=== PATIENT | female | born 1980 | race Caucasian/White ===

== ENCOUNTER 2019-11-01 14:45 | Inpatient (IN) | payer MEDICAID ==
[~2019-11-01] VITALS: Ht 144.8 cm; Wt 66.2 kg
[2019-11-01] MEDS: OXYTOCIN 20 UNITS in LACTATED RINGERS 1,000 ML IV SCH (05:00)
[2019-11-01] MEDS ORDERED: DEXT 5%/LR + PITOCIN 20UNITS/L 1,000 ML IV SCH (15:36)
[2019-11-01] MEDS ORDERED: METHYLERGONOVINE MALEATE 0.2 MG/ML IM PRN (15:45)
[2019-11-01] MEDS ORDERED: BUTORPHANOL TARTRATE 2 MG/ML VIAL IV PRN (15:45)
[2019-11-01] MEDS ORDERED: LABETALOL HCL 5MG/ML VIAL 20ML IV PRN ×3 (15:45)
[2019-11-01] MEDS ORDERED: HYDRALAZINE 20MG/ML VIAL IV PRN (15:45)
[2019-11-01] MEDS ORDERED: MISOPROSTOL 200MCG TABLET VG SCH (15:45)
[2019-11-01] MEDS ORDERED: LIDOCAINE HCL 1% 20ML VIAL (Pyxis) INJ INFIL SCH (15:45)
[2019-11-01] MEDS ORDERED: CARBOPROST TROMETHAMINE 250 MCG/ML AMPUL IM PRN (15:45)
[2019-11-01] MEDS ORDERED: NALOXONE HCL 0.4 MG/ML 1ML VIAL IM PRN (15:45)
[2019-11-01] MEDS ORDERED: MAGNESIUM 2 G PREMIX 50 ML IV SCH (16:00)
[2019-11-01] MEDS ORDERED: LACTATED RINGERS 1,000 ML IV SCH (16:00)
[2019-11-01] MEDS: MAGNESIUM 20 G PREMIX (L & D) 500 ML IV SCH (16:39)
[2019-11-01 16:58] LABS: CLARITY URINE CLEAR (CLEAR); COLOR URINE YELLOW (YELLOW); KETONES URINE 1+ (NEGATIVE); LEUKOCYTE ESTERASE URINE NEGATIVE (NEGATIVE); NITRITE URINE NEGATIVE (NEGATIVE); OCCULT BLOOD URINE 1+ (NEGATIVE); PROTEIN URINE 2+ (NEGATIVE); SPECIFIC GRAVITY URINE 1.015 (1.005-1.030); UROBILINOGEN URINE 0.2 E.U./dL (0.2-1.0)
[2019-11-01 16:59] LABS: BASOPHILS % 0.5 % (0.0-2.0); EOSINOPHILS % 0.5 % (0.0-5.0); HEMATOCRIT. 36.4 % (36.0-48.0); HEMOGLOBIN. 12.7 g/dL (12.0-16.0); LYMPHOCYTES % 24.8 % (20.0-50.0); MEAN CORPUSCULAR HEMOGLOBIN 30.7 pg (28.0-32.0); MEAN CORPUSCULAR VOLUME 88.4 fL (81.0-99.0); MEAN PLATELET VOLUME 9.7 fl (7.4-10.4); MONOCYTES % 5.1 % (2.0-8.0); NEUTROPHILS % 69.1 % (40.0-76.0); PLATELET 179 x1000/uL (130-400); RED BLOOD CELL COUNT 4.12 mill/uL (4.2-5.4); RED CELL DISTRIBUTION WIDTH 16.1 % (11.6-14.6)
[2019-11-01] MEDS ORDERED: METFORMIN HCL 500MG TABLET PO SCH (17:00)
[2019-11-01] MEDS: MISOPROSTOL 100MCG TABLET VG PRN ×2 (17:00→21:18)
[2019-11-01 17:04] LABS: CHLORIDE 108 mEq/L (98-107)
[2019-11-01 17:08] LABS: *AMPHETAMINES SCREEN URINE NEGATIVE (NEGATIVE); *BARBITURATES SCREEN URINE NEGATIVE (NEGATIVE); *BENZODIAZEPINES SCREEN URINE NEGATIVE (NEGATIVE); *COCAINE SCREEN URINE NEGATIVE (NEGATIVE); METHADONE URINE SCREEN NEGATIVE (NEGATIVE)
[2019-11-01 17:09] LABS: CANNABINOID URINE SCREEN NEGATIVE (NEGATIVE); OPIATES URINE SCREEN NEGATIVE (NEGATIVE); PHENCYCLIDINE URINE SCREEN NEGATIVE (NEGATIVE)
[2019-11-01 17:29] LABS: D-DIMER 3.47 mg/L FEU (<0.50); INR 0.9; PARTIAL THROMBOPLASTIN TIME 26.8 sec (23.4-31.0); PROTHROMBIN TIME 9.6 sec (9.6-11.0)
[2019-11-01 17:33] LABS: HEPATITIS B SURFACE ANTIGEN NEGATIVE
[2019-11-01] MEDS ORDERED: LIDOCAINE HCL 1% 20ML VIAL (Pyxis) INJ INFIL ONE (22:15)
[2019-11-02] MEDS ORDERED: OXYTOCIN 20 UNITS in LACTATED RINGERS 1,000 ML IV SCH (04:38)
[2019-11-02] MEDS: OXYTOCIN 20 UNITS in LACTATED RINGERS 1,000 ML IV SCH (05:19)
[2019-11-02] MEDS ORDERED: DEXT 5%/LR + PITOCIN 20UNITS/L 1,000 ML IV SCH (06:09)
[2019-11-02] MEDS ORDERED: IBUPROFEN 400MG TABLET PO PRN (06:15)
[2019-11-02] MEDS ORDERED: RHO(D) IMMUNE GLOBULIN 300 MCG/SYR IM PRN (06:15)
[2019-11-02] MEDS ORDERED: BENZOCAINE/LANOLIN/ALOE VERA SPRAY TOP PRN (06:15)
[2019-11-02] MEDS ORDERED: LIDOCAINE HCL 1% 20ML VIAL (Pyxis) INJ ONE (07:15)
[2019-11-02] MEDS: MAGNESIUM 20 G PREMIX (L & D) 500 ML IV SCH (08:52)
[2019-11-02 09:00] VITALS: BP 145/95
[2019-11-02] MEDS ORDERED: METFORMIN HCL 500MG TABLET PO SCH (09:00)
[2019-11-02 09:30] VITALS: BP 146/95
[2019-11-02] MEDS ORDERED: LABETALOL HCL 100MG TABLET PO SCH (10:00)
[2019-11-02 11:50] VITALS: BP 138/86
[2019-11-02] MEDS: IBUPROFEN 800MG TABLET PO PRN ×2 (12:53→21:29)
[2019-11-02 15:36] VITALS: BP 125/77
[2019-11-02] MEDS: METFORMIN HCL 500MG TABLET PO SCH (18:50)
[2019-11-02 19:30] VITALS: BP 126/73
[2019-11-03 00:01] VITALS: BP 144/82
[2019-11-03 05:00] VITALS: BP 127/77
[2019-11-03 07:02] LABS: BASOPHILS % 0.1 % (0.0-2.0); EOSINOPHILS % 0.7 % (0.0-5.0); HEMATOCRIT. 31.1 % (36.0-48.0); HEMOGLOBIN. 10.7 g/dL (12.0-16.0); LYMPHOCYTES % 21.1 % (20.0-50.0); MEAN CORPUSCULAR HEMOGLOBIN 30.1 pg (28.0-32.0); MEAN CORPUSCULAR VOLUME 87.9 fL (81.0-99.0); MEAN PLATELET VOLUME 9.3 fl (7.4-10.4); MONOCYTES % 4.2 % (2.0-8.0); NEUTROPHILS % 73.9 % (40.0-76.0); PLATELET 162 x1000/uL (130-400); RED BLOOD CELL COUNT 3.54 mill/uL (4.2-5.4)
[2019-11-03 08:00] VITALS: BP 130/73
[2019-11-03] MEDS ORDERED: LABETALOL HCL 100MG TABLET PO SCH (09:16)
[2019-11-03] MEDS: IBUPROFEN 800MG TABLET PO PRN (10:45)
[2019-11-03] MEDS: METFORMIN HCL 500MG TABLET PO SCH (10:49)
== END 2019-11-03 17:40 | disposition home or self-care (01) | DRG 560 ==
LOC: UNDOADMOB 14:45 → 8EST 14:45 → 8 EST LDRP 14:45 → INTOOBSV 14:45 → OBSVTOIN 14:45 → 8EST 11-02 09:00 → 8 EST LDRP 11-02 09:00 → UNDODISIN 11-03 17:40
PROVIDERS: ADMIT Obstetrics & Gynecology; ATTEND Obstetrics & Gynecology
PROC: 10E0XZZ Delivery of Products of Conception, External Approach (ICD-10-PCS; principal; 2019-11-02)
PROC: 3E033VJ Introduction of Other Hormone into Peripheral Vein, Percutaneous Approach (ICD-10-PCS; 2019-11-02)
PROC: 0HQ9XZZ Repair Perineum Skin, External Approach (ICD-10-PCS; 2019-11-02)
DX: O14.94 Unspecified pre-eclampsia, complicating childbirth (principal); O24.420 Gestational diabetes mellitus in childbirth, diet controlled; O13.4 Gestational [pregnancy-induced] hypertension without significant proteinuria, complicating childbirth; O70.0 First degree perineal laceration during delivery; Z3A.38 38 weeks gestation of pregnancy; Z37.0 Single live birth
CPT/HCPCS: 36415; 80048; 80305; 81003; 82950; 82962; 83735; 84550; 85025; 85379; 85384; 86592; 86703; 86762; 86850; 86900; 87340; 99281; G0378; J0595; J3475; J3490; J7120